=== PATIENT | male | born 1995 | race Caucasian/White ===

== ENCOUNTER → 2017-02-01 | Outpatient (CLI) | payer OTHER ==
--- NOTE | ~2017-02-01 | SLE ---
[facility] [address] [place] [address] POLYSOMNOGRAPHY STUDY Name: JAK ALEX Room #: PRE [facility] M.R.#: [id number] Admission: Attend Phys: Dheeraj Snyder MD Discharge: Date of : 89 Report #: [id number] THIS REPORT FOR: //name// CC: Trevin Alex Md HISTORY: A 21-year-old, height 6 feet, weight 182 pounds. Problem began 5-6 years ago. Usually goes to bed at midnight, gets out of bed 7:30-8:00 a.m. He feels body temperature being hot, awakens at midnight, paced 15-30 minutes, fall asleep. Positive snoring and daytime somnolence. No definite history of cataplexy. Hillman sleepiness scale an 8. History of sleep talking and sleep walking. COMMENTS: SLEEP SUMMARY: Total sleep time 356 minutes. Sleep efficiency 78.5%. Sleep latency 13 minutes. REM latency 275 minutes. SLEEP STAGE. 1-7%, 2-80%, 3-6%, REM-7%. Apnea-hypopnea index of 0.5 events per sleep hour. Periodic limb movement with arousal index of 1 event per sleep hour. Arousal pulse awakening index 10.3 events per sleep hour. Low oxygen saturation 94%. Significant snoring noted. No significant arrhythmia noted. IMPRESSION: 1. Apnea-hypopnea index of 0.5 events per sleep hour. 2. Respiratory effort related arousal 0.2 events per sleep hour. 3. Abnormal sleep architecture. 4. Periodic limb movement with arousal index of 1 event per sleep hour. SUGGESTIONS: 1. There is abnormal sleep architecture on this night, may be related to first night effect. 2. Further evaluation regarding snoring is recommended as although no definite upper airway resistance with arousal seen. This may be causing sleep disruption. 3. If signs and symptoms not improved with therapy, further evaluation is recommended. 4. If sleep apnea is still considered, may consider a home sleep study to further evaluate. 5. Please do not hesitate to contact me if I may be of further assistance. <ELECTRONICALLY SIGNED> By: Dheeraj Snyder MD 02/13/17 0931 [id number] Dheeraj Snyder MD /nt
== END ==
LOC: SLEEPLAB 14:44
DX: G47.33 Obstructive sleep apnea (adult) (pediatric) (principal)